=== PATIENT | female | born 1995 | race African-American/Black ===

== ENCOUNTER 2022-10-28 09:32 | Outpatient (REF) | payer MEDICAID, SELFPAY ==
[2022-10-28 12:53] LABS: Cholesterol 181 mg/dL; HDL Cholesterol 37 mg/dL; LDL Cholesterol Calculated 98 mg/dl; Triglycerides 233 mg/dL
[2022-10-29 03:00] LABS: Syphilis Screen Nonreactive (Nonreactive)
[2022-10-29 03:42] LABS: ~HepC Num1 0.99 S/CO (0.00-0.79)
[2022-10-29 04:38] LABS: ~Hepatitis C Antibody Grayzone (Nonreactive)
[2022-11-03 12:43] LABS: HCV Log PCR <1.18 NOT DETECTED Log IU/mL (NOT DETECTED); HepC Viral Load <15 NOT DETECTED IU/mL (NOT DETECTED)
== END 2022-10-28 09:33 | disposition home or self-care (01) ==
LOC: HO.HHCL 09:32
PROVIDERS: Visit Provider Family Medicine
DX: Z11.3 Encounter for screening for infections with a predominantly sexual mode of transmission (principal); E78.5 Hyperlipidemia, unspecified
CPT/HCPCS: 36415; 80061; 86780; 86803; 87522

== ENCOUNTER 2024-10-10 11:26 | Outpatient (REF) | payer MEDICAID, SELFPAY ==
--- OUTSIDE RECORDS SUMMARY | 2024-10-10 10:30 | XMS_ITS | Encounter Summary ---
Author Organization [facility] Address [address] [place] [address] Care Team Providers Care Online Merchandiser Name Role Phone Jessica Rahman MD Primary Care Provider [phone] Reason for Referral * Consultation (Routine) - Authorized Specialty Diagnoses / Procedures Referred By Contac t Referred To Contact Pharmacy Diagnoses Elevated blood pressure reading Jessica Rahman MD [address] [place] [phone] Phone: tel: fax: Referral ID Status Reason Start Date Expiration Date Visits Requested Visits Authorized [id number] Authorized Consult and Treat 10/10/2024 10/10/2025 6 6 Reason for Visit * Reason Comments Annual Exam Encounter Details Date Type Department Care Team (Late st Contact Info) Description 10/10/2024 10:30 AM EDT Office Visit [facility] [address] [place] [phone] Jessica Rahman MD [address] [place] [phone] Recurrent major depressive disorder, in partial remission (CMS/HCC) (Primary Dx); Elevated blood pressure reading; Dyslipidemia; Class 3 severe obesity due to excess calories without serious comorbidity with body mass index (BMI) of 40.0 to 44.9 in adult; Dietary counseling; Exercise counseling; Cochlear implant in place; Bilateral deafness; Encounter for immunization; Routine screening for STI (sexually transmitted infection); Other specified health status Social History Tobacco Use Types Packs/Day Years Used Date Smoking Tobacco: Never Assessed Tobacco Cessation:Counseling Given: Not Answered Depression Answer Date Recorded Patient Health Questionnaire-9 Score 4 10/10/2024 Patient Health Questionnaire-9 Score 4 10/10/2024 Last PHQ-9: Questionnaire Data Not on file 0 10/10/2024 Housing Stability Answer Date Recorded What is your housing situation today? I have yesenia dukes 10/10/[address] you li ve. Do you have problems with any of the following? None of the above 10/10/2024 Food Insecurity Answer Date Recorded Within the past 12 months, y ou worried that your food would run out before you got money to buy more: Never True 10/10/2024 Within the past 12 months,th e food you bought just didn't last and you didn't have enough money to get more: Never True Transportation Answer Date Recorded In the past 12 months, has l ack of transportation kept you from medical appts, meetings, work or from getting things needed for daily living? No 10/10/2024 Utilities Answer Date Recorded In the past 12 months, has t he electric, gas, oil or water company threatened to shut off services in your home? No 10/10/2024 Depression Answer Date Recorded Patient Health Questionnaire-2 Score 4 10/10/2024 Internet Access Answer Date Recorded Internet Access Q1 No 10/10/2024 Internet Access Q2 I do not want or need it 09/19 Comments Unknown Intention Date Recorded No desire to become (finding) 0 10/10/2024 Sex and Gender Information Value Date Recorded Sex Assigned at Female 01/18/2022 10:40 AM EDT Legal Sex Female 10:40 AM EDT Gender Identity Female 01/18/2022 10:40 AM EDT Sexual Orientation Choose not to disclose 2021 10:40 AM EDT documented as of this encounter Last Filed Vital Signs Vital Sign Reading Time Taken Comments Blood Pressure 144/100 10/10/2024 11:12 AM EDT Pulse 85 10/10/2024 10:46 AM EDT Temperature 37.2 C (98.9 F) 10/10/2024 10:46 AM EDT Respiratory Rate 20 10/10/2024 10:46 AM EDT Oxygen Saturation 96% 10/10/2024 10:46 AM EDT Inhaled Oxygen Concentration - - Weight 97.3 kg (214 lb 6.4 oz) 10/10/2024 10:46 AM EDT Height 154.9 cm (5' 1 ) 10/10/2024 10:46 AM EDT Body Mass Index 40.51 10/10/2024 10:46 AM EDT documented in this encounter Functional Status * Over the past 2 weeks, how often have you been bothered by any of the following problems? Question Answer Date of Assessment Author Patient Health Questionnaire-2 Score 4 09/19 10:49 AM Vicky Henson MA * Little interest or pleasure in doing things Answer Date of Assessment Author Nearly every day 10/10/2024 10:49 AM Vicky Henson MA * Feeling down, depressed, or hopeless Answer Date of Assessment Author Several days 10/10/2024 10:49 AM Anamika Henson MA * Trouble falling or staying asleep, or sleeping too much Answer Date of Assessment Author Not at all 10/10/2024 10:49 AM Anamika Henson MA * Feeling tired or having little energy Answer Date of Assessment Author Not at all 10/10/2024 10:49 AM Anamika Henson MA * Poor appetite or overeating Answer Date of Assessment Author Not at all 10/10/2024 10:49 AM Anamika Henson MA * Feeling bad about yourself - or that you are a failure or have let yourself or your family down Answer Date of Assessment Author Not at all 10/10/2024 10:49 AM Anamika Henson MA * Trouble concentrating on things, such as reading the newspaper or watching television Answer Date of Assessment Author Not at all 10/10/2024 10:49 AM Anamika Henson MA * Moving or speaking so slowly that other people could have noticed? Or the opposite - being so fidgety or restless that you have been moving around a lot more than usual. Answer Date of Assessment Author Not at all 10/10/2024 10:49 AM Anamika Henson MA * Thoughts that you would be better off or hurting yourself in some way Answer Date of Assessment Author Not at all 10/10/2024 10:49 AM Anamika Henson MA * Patient Health Questionnaire-9 Score Answer Date of Assessment Author 4 10/10/2024 10:49 AM Anamika Henson MA * Over the last 2 weeks, how often have you been bothered by any of the following problems? Question Answer Date of Assessment Author Feeling nervous, anxious, or on edge 0 09/19 10:49 AM Vicky Henson MA Not being able to stop or co ntrol worrying 0 10/10/2024 10:49 AM Vicky Henson M A Worrying too much about diff erent things 0 10/10/2024 10:49 AM Vicky Henson M A Trouble relaxing 0 10/10/2024 10:49 AM Vicky Henson MA Being so restless that it is hard to sit still 0 10/10/2024 10:49 AM Vicky Henson M A Becoming easily annoyed or irritable 0 09/19 10:49 AM Vicky Henson MA Feeling afraid as if somethi ng awful might happen 0 10/10/2024 10:49 AM Vicky Henson M A GALA-7 Total Score 0 10/10/2024 10:49 AM Vicky Henson MA documented as of this encounter Miscellaneous Notes * Assessment & Plan Note - sIela Wetzel - 10/10/2024 10:30 AM EDTAssociated Problem(s): Dyslipidemia Lab Results Component Value Date CHOLESTEROL 207 (H) 11/11/2021 LDLCHOL 128 (H) 11/11/2021 HDLCHOL 37 (L) 11/11/2021 CHOLHDLRAT 5.6 (H) 11/11/2021 -continue lifestyle modifications -ordered repeat FLP and HFP 10/10/24 * Assessment & Plan Note - Isela Wetzel - 10/10/2024 10:30 AM EDTAssociated Problem(s): Deaf -Patient needs certified court interpreter for all visits. Please make note of this in any referrals. * Assessment & Plan Note - Isela Wetzel - 10/10/2024 10:30 AM EDTAssociated Problem(s): Other specified health status -next physical exam due after 10/10/25 -eye care not needed. -dental home is encouraged and pt agrees to call [facility]. -health care proxy given and filed 10/10/24 * Assessment & Plan Note - Isela Wetzel - 10/10/2024 10:30 AM EDTAssociated Problem(s): Recurrent major depressive disorder, in partial remission (CMS/HCC) Declines therapist. In the past was on Bupropion. -re-prescribed today 10/10/24 Orders: buPROPion XL (Wellbutrin XL) 150 MG 24 hr tablet; Take 1 tablet (150 mg) by mouth Once per day. * Assessment & Plan Note - Isela Wetzel - 10/10/2024 10:30 AM EDTAssociated Problem(s): Cochlear implant in place -Patient needs certified court interpreter for all visits. Please make note of this in any referrals. * Assessment & Plan Note - Isela Wetzel - 10/10/2024 10:30 AM EDTAssociated Problem(s): Elevated blood pressure reading -Blood pressure is elevated on repeat and both cuffs. -Encouraged lifestyle modifications -Referred to [facility] Program with our ANKIT Hernandes 10/10/24 -Encouraged smoking cessation. Orders: Blood Pressure kit; Check blood pressure twice a week or prn Referral to Pharmacy CDTM documented in this encounter Plan of Treatment Upcoming Encounters Date Type Department Care Team (Late st Contact Info) Description 12/28/2024 11:00 AM EDT Office Visit [facility] [address] [place] [address] Jessica Rahman MD [address] [place] [address] Scheduled Orders Name Type Priority Associated Diagnoses Orde r Schedule Hepatic Function Panel Lab Routine Class 3 severe obesity due to excess calories without serious comorbidity with body mass index (BMI) of 40.0 to 44.9 in adult ([facility]) Expected: 10/10/2024 (Approximate), Expires: 10/10/2025 Lipid Panel, Standard Lab Routine Class 3 severe obesity due to excess calories without serious comorbidity with body mass index (BMI) of 40.0 to 44.9 in adult ([facility]) Expected: 10/10/2024 (Approximate), Expires: 10/10/2025 Hemoglobin A1c Lab Routine Class 3 severe obesity due to excess calories without serious comorbidity with body mass index (BMI) of 40.0 to 44.9 in adult ([facility]) Expected: 10/10/2024 (Approximate), Expires: 10/10/2025 Basic Metabolic Panel Lab Routine Class 3 severe obesity due to excess calories without serious comorbidity with body mass index (BMI) of 40.0 to 44.9 in adult ([facility]) Expected: 10/10/2024 (Approximate), Expires: 10/10/2025 HIV-1/2 Antigen and Antibodies, Fourth Generation, with Reflexes Lab Routine Routine screening for STI (sexually transmitted infection) Expected: 10/10/2024 (Approximate), Expires: 10/10/2025 Syphilis Screen Lab Routine Routine screening for STI (sexually transmitted infection) Expected: 10/10/2024 (Approximate), Expires: 10/10/2025 Chlamydia/N. Gonorrhoeae, PCR, Urine Lab Routine Routine screening for STI (sexually transmitted infection) Ordered: 10/10/2024 TSH W/Reflex to FT4 Lab Routine Class 3 severe obesity due to excess calories without serious comorbidity with body mass index (BMI) of 40.0 to 44.9 in adult Expected: 10/10/2024 (Approximate), Expires: 10/10/2025 Scheduled Referrals Name Type Priority Associated Diagnoses Orde r Schedule Referral to Pharmacy CDTM Outpatient Referral Routine Elevated blood pressure reading Ordered: 10/10/2024 documented as of this encounter Visit Diagnoses Diagnosis Recurrent major depressive disorder, in partial remission (CMS/HCC)- Primary Elevated blood pressure reading Elevated blood pressure reading without diagnosis of hypertension Dyslipidemia Other and unspecified hyperlipidemia Class 3 severe obesity due to excess calories without serious comorbidity with body mass index (BMI) of 40.0 to 44.9 in adult Dietary counseling Dietary surveillance and counseling Exercise counseling Cochlear implant in place Bilateral deafness Unspecified hearing loss Encounter for immunization Routine screening for STI (sexually transmitted infection) Screening examination for venereal disease Other specified health status documented in this encounter Additional Health Concerns Assessment Noted Time PHQ-9 Depression Total Score: 4 10/11/19 25 10:49 AM EDT documented as of this encounter Care Teams Online Merchandiser Relationship Specialty Start Date End Date Jessica Rahman MD [address] [place] [phone] PCP - General Family Medicine 07/01/21 documented as of this encounter
[2024-10-10 13:44] LABS: Hemoglobin A1C 117.2570 umol/L; Total Hemoglobin (HGBA1C) 3419.4790 umol/L
[2024-10-10 13:54] LABS: Alanine Aminotransferase 34 U/L (0-31); Albumin Level 4.6 g/dL (3.5-5.0); Alkaline Phosphatase 61 U/L (39-117); Anion Gap 12 (12-20); Aspartate Amino Transferase 33 U/L (5-31); Blood Urea Nitrogen 6 mg/dL (9-16); Calcium 9.0 mg/dL (8.4-10.2); Carbon Dioxide 24 mmol/L (22-29); Chloride 107 mmol/L (96-108); Cholesterol 205 mg/dL (<200); Estimated Glomerular Filt Rate > 60; HDL Cholesterol 39 mg/dL (>40); Potassium 3.3 mmol/L (3.3-5.1); Sodium 140 mmol/L (135-145); Total Protein 7.9 g/dL (6.5-8.0); Triglycerides 232 mg/dL (<150)
[2024-10-10 14:01] LABS: HIV Num 1 0.06 S/CO (0.00-0.99)
[2024-10-10 14:05] LABS: Syphilis Screen Nonreactive (Nonreactive)
== END 2024-10-10 11:27 | disposition home or self-care (01) ==
LOC: HO.HHCL 11:26
PROVIDERS: PCP Family Medicine; Visit Provider Family Medicine
DX: Z11.3 Encounter for screening for infections with a predominantly sexual mode of transmission (principal); Z11.4 Encounter for screening for human immunodeficiency virus [HIV]; E66.813 Obesity, class 3; Z68.41 Body mass index [BMI] 40.0-44.9, adult
CPT/HCPCS: 36415; 80048; 80061; 80076; 83036; 84443; 86780; 87389